=== PATIENT | female | born 1985 | race Caucasian/White ===

== ENCOUNTER 2018-12-21 15:19 | Emergency (ER) | payer MEDICAID ==
[2018-12-21 15:26] VITALS: BP 137/74
--- NOTE | 2018-12-21 15:49 | ER Document Report ---
ED Medical Screen (RME) - General Chief Complaint: Back Pain Stated Complaint: BACK PAIN Time Seen by Provider: 12/21/18 15:45 Mode of Arrival: Ambulatory Information source: Patient Notes: This 33-year-old female presents with complaints of back pain. Reports mid to low back pain. History of C2 fracture. Patient is on pain management takes oxy and several other medications for her pain. Reports not helping. Also reports she has had a change in her the way she voids. Feels like she has to change positions to void. Denies recent trauma. Denies fever vomiting diarrhea. Patient is visiting from [place]. I have greeted and performed a rapid initial assessment of this patient. A comprehensive ED assessment and evaluation of the patient, analysis of test results and completion of the medical decision making process will be conducted by additional ED providers. Dictation of this chart was performed using voice recognition software; therefore, there may be some unintended grammatical errors. - Related Data Allergies/Adverse Reactions: acetaminophen [From Lortab] Allergy (Severe, Verified 12/21/18 15:42) resp distress, rash baclofen Allergy (Severe, Verified 12/21/18 15:42) Vivid dreams hydrocodone Allergy (Severe, Verified 12/21/18 15:42) resp distress, rash ketorolac [From Toradol] Allergy (Severe, Verified 12/21/18 15:42) colitis loracarbef [From Lorabid] Allergy (Severe, Verified 12/21/18 15:42) Respiratory arrest tramadol Allergy (Severe, Verified 12/21/18 15:42) Colitis spironolactone Allergy (Intermediate, Verified 12/21/18 15:42) Respiratory distress Physical Exam - Vital signs Vitals: Temp Pulse Resp BP Pulse Ox 98.4 F 96 19 137/74 H 97 12/21/18 15:24 12/21/18 15:24 12/21/18 15:24 12/21/18 15:24 12/21/18 15:24 Course - Vital Signs Vital signs: Temp Pulse Resp BP Pulse Ox 98.4 F 96 19 137/74 H 97 12/21/18 15:24 12/21/18 15:24 12/21/18 15:24 12/21/18 15:24 12/21/18 15:24
[2018-12-21 16:19] LABS: APPEARANCE,URINE SLIGHTLY-CLOUDY; BILIRUBIN,URINE NEGATIVE (NEGATIVE); COLOR,URINE YELLOW; GLUCOSE, URINE NEGATIVE (NEGATIVE); KETONES,URINE NEGATIVE (NEGATIVE); LEUKOCYTE ESTERASE,URINE NEGATIVE (NEGATIVE); NITRITE,URINE NEGATIVE (NEGATIVE); PROTEIN,URINE NEGATIVE (NEGATIVE); URINE SPECIFIC GRAVITY 1.017; UROBILINOGEN,URINE NEGATIVE mg/dL (<2.0)
[2018-12-21] MEDS ORDERED: HYDROMORPHONE HCL INJ/PF 2 MG/ML AMPULE IM ONE (17:12)
--- NOTE | 2018-12-21 17:16 | ER Document Report ---
HPI - HPI Time Seen by Provider: 12/21/18 15:45 Pain Level: 5 Notes: Patient is a 33-year-old female with a history of chronic back pain under the care of pain management who presents complaining of acute on chronic right low back pain. Patient states her back pain does not radiate and is worse with moving and twisting. Patient states that the pain has been persistent for 1 week without resolve with her pain medicine at home. Patient states that she has been performing exercises, seeing chiropractics, and performing other conservative measures at home without relief. Patient states that [facility], but would like something to help bring it down to a manageable level so her outpatient medications will work well for her. She is able to eat and drink without difficulty. She is urinating and having normal bowel movements. No other vaginal discharge, odor, or bleeding. No history of spinal abscess, diabetes, or IV drug abuse. Denies any headache, fever, URI, sore throat, chest pain, palpitations, syncope, cough, shortness of breath, wheeze, dyspnea, abdominal pain, nausea/vomiting/diarrhea, urinary retention, dysuria, hematuria, loss of control of bowel or bladder, numbness/tingling, saddle anesthesia, muscle paralysis/weakness, or rash. - ROS Systems Reviewed and Negative: Yes All other systems reviewed and negative - REPRODUCTIVE LMP: hysterectomy Reproductive: DENIES: : Past Medical History - General Information source: Patient - Social History Smoking Status: Never Smoker Chew tobacco use (# tins/day): No Frequency of alcohol use: None Drug Abuse: None Family History: Reviewed & Not Pertinent Patient has suicidal ideation: No Patient has homicidal ideation: No Renal/ Medical History: Denies: Hx Peritoneal Dialysis Vertical Provider Document - CONSTITUTIONAL Agree With Documented VS: Yes Notes: PHYSICAL EXAMINATION: GENERAL: Well-appearing, well-nourished and in no acute distress. LUNGS: Breath sounds clear to auscultation bilaterally and equal. No wheezes rales or rhonchi. HEART: Regular rate and rhythm without murmurs, rubs, gallops. ABDOMEN: Soft, nontender, nondistended abdomen. No guarding, no rebound. No masses appreciated. Normal bowel sounds present. No CVA tenderness bilaterally. No pulsatile mass Musculoskeletal: LE's b/l: FROM to passive/active. Strength 5+/5. No deficits noted. No bony tenderness of extremities. Back: FROM to passive/active. Strength 5+/5. No vertebral point tenderness, stepoffs, or deformities. No other bony tenderness, erythema, swelling, or ecchymosis. SLR negative b/l. + tenderness to the Rt L-paraspinal mm that reproduces symptoms with trigger point and mild spasming. No SI jt tenderness. No foot drop Extremities: No cyanosis, clubbing, or edema b/l. Peripheral pulses 2+. Capillary refill less than 2 seconds. NEUROLOGICAL: Normal speech, normal gait. Normal sensory, motor exams. Reflexes 2+ b/l. PSYCH: Normal mood, normal affect. SKIN: Warm, Dry, normal turgor, no rashes or lesions noted. - INFECTION CONTROL TRAVEL OUTSIDE OF THE [place] IN LAST 30 DAYS: No Course - Re-evaluation Re-evalutation: 12/21/18 17:14 Patient is an afebrile, well-hydrated, 33-year-old female who presents to the ED with acute on chronic low back pain. Vitals are acceptable. PE is otherwise unremarkable for any focal neurological deficits. She has no significant tachycardia, tachypnea, or hypoxia. She is nontoxic-appearing and is tolerating p.o. without difficulties. There are no signs of infection. No other red flag symptoms noted. No other labs or imaging warranted at this time based on H&P. Low suspicion for any meningitis, fracture, expanding/ruptured AAA, cauda equina syndrome, epidural mass lesion/abscess, herniated disc causing severe spinal stenosis, or other systemic infection at this time. Patient is aware that this condition can change from initial presentation and that she needs monitor symptoms closely for any acute changes. Pt was given 1 dose of IM dilaudid for her acute pain, but is aware that she is not going home with any further narcotic medication and is aware that the ED is not a place for pain management. She will need to contact her medical group tomorrow. Conservative measures otherwise for symptoms. Recheck with your PCM in 3-5 days. Consider consult with orthopedic/physical therapy. Return to the ED with any worsening/concerning symptoms otherwise as reviewed discharge. Patient is in agreement. - Vital Signs Vital signs: Temp Pulse Resp BP Pulse Ox 98.4 F 96 19 137/74 H 97 12/21/18 15:24 12/21/18 15:24 12/21/18 15:24 12/21/18 15:24 12/21/18 15:24 Discharge - Discharge Clinical Impression: Acute exacerbation of chronic low back pain Condition: Stable Disposition: HOME, SELF-CARE Additional Instructions: Rest, Ice Tylenol/ibuprofen as needed Light stretches daily Strength exercises as able Moist heat and massage may help F/u with your PCP in 3-5 days for a recheck Consider consult(s) with Orthopedics/physical therapy for ongoing/worsening symptoms Return to the ED with any worsening symptoms and/or development of fever, headache, chest pain, palpitations, syncope, shortness of breath, trouble breathing, abdominal pain, n/v/d, blood in stool/urine, loss of control of bowel/bladder, urinary retention, muscle weakness/paralysis, saddle anesthesia, numbness/tingling, or other worsening symptoms that are concerning to you. Forms: Elevated Blood Pressure Referrals: [facility] [Provider Group] - Follow up as needed
== END 2018-12-21 17:30 | disposition home or self-care (01) ==
LOC: ER 15:19
DX: G89.29 Other chronic pain (principal); M54.5 Low back pain
CPT/HCPCS: 99283; 96372; 81025; 81001; J1170

== ENCOUNTER 2019-03-05 12:13 | Emergency (ER) | payer OTHER ==
[2019-03-05] MEDS ORDERED: DEXAMETHASONE SOD PHOS INJ 10 MG/1 ML VIAL IM ONE (13:50)
[2019-03-05] MEDS ORDERED: LIDOCAINE 5% (700 MG) TRANSDERMAL ADH..PATCH TP ONE (13:50)
--- NOTE | 2019-03-05 13:50 | ER Document Report ---
ED Neck/Back Problem - General Chief Complaint: Low Back Pain Stated Complaint: NECK PAIN Time Seen by Provider: 03/05/19 13:39 Primary Care Provider: [facility] [Provider [facility]] - Follow up as needed [facility] [Provider Group] - [facility] as [facility]] - Follow up as needed [facility] [Provider Group] - Follow up as needed [facility] [Provider Group] - Follow up as needed [facility] [Provider Group] - Follow up as needed Mode of Arrival: Ambulatory Information source: Patient Notes: 33-year-old female presents to ED for complaint of low back pain to the right lower back and right buttocks it does not radiate down her leg. She does have a long history of chronic back pain with multiple wounds to her back. She does have fibromyalgia, bulging disc, previous neck fracture, ulcerative colitis, arthritis. She states she is on Percocet and Flexeril. She cannot take Toradol or tramadol due to her ulcerative colitis being flared up each time she takes these. Dates she has not had any surgeries in the past. Patient is on oxycodone 15 5 times a day and Flexeril for her chronic pain TRAVEL OUTSIDE OF THE [place] IN LAST 30 DAYS: No - HPI Patient complains to provider of: Lower back Onset: Last week Onset: Chronic Timing: Waxing and waning Quality of pain: Sharp Severity: Moderate Pain Level: 3 Recent injury: No Associated symptoms: Like prior neck/back pain, Radiation to leg, Lower back pain Exacerbated by: Movement of neck, Movement of trunk Relieved by: Nothing Similar symptoms previously: Yes Recently seen / treated by doctor: No - Related Data Allergies/Adverse Reactions: acetaminophen [From Lortab] Allergy (Severe, Verified 03/05/19 14:23) resp distress, rash baclofen Allergy (Severe, Verified 03/05/19 14:23) Vivid dreams hydrocodone Allergy (Severe, Verified 03/05/19 14:23) resp distress, rash ketorolac [From Toradol] Allergy (Severe, Verified 03/05/19 14:23) colitis loracarbef [From Lorabid] Allergy (Severe, Verified 03/05/19 14:23) Respiratory arrest tramadol Allergy (Severe, Verified 03/05/19 14:23) Colitis spironolactone Allergy (Intermediate, Verified 03/05/19 14:23) Respiratory distress Home Medications: Oxycodone, Xanax, Zofran, Flexiril Past Medical History - General Information source: Patient - Social History Smoking Status: Never Smoker Frequency of alcohol use: None Drug Abuse: None Lives with: Family Family History: Reviewed & Not Pertinent Patient has suicidal ideation: No Patient has homicidal ideation: No - Past Medical History Cardiac Medical History: Reports: None Pulmonary Medical History: Reports: None EENT Medical History: Reports: None Neurological Medical History: Reports: None Endocrine Medical History: Reports: None Renal/ Medical History: Reports: None Malignancy Medical History: Reports: None GI Medical History: Reports: Hx Gastroesophageal Reflux Disease, Hx Ulcer, Hx Ulcerative Colitis, Hx Colonoscopy, Hx Endoscopy Musculoskeletal Medical History: Reports Hx Arthritis, Reports Hx Fibromyalgia, Reports Hx Musculoskeletal Deformity, Reports Hx Musculoskeletal Trauma Skin Medical History: Reports None Psychiatric Medical History: Reports: Hx Anxiety, Other - panic Traumatic Medical History: Reports: Hx Spine Fracture - c2 Infectious Medical History: Reports: None Past Surgical History: Reports: Hx Hysterectomy Review of Systems - Review of Systems Constitutional: No symptoms reported EENT: No symptoms reported Cardiovascular: No symptoms reported Respiratory: No symptoms reported Gastrointestinal: No symptoms reported Genitourinary: No symptoms reported Female Genitourinary: No symptoms reported Musculoskeletal: Back pain, Muscle pain, Muscle stiffness Skin: No symptoms reported Hematologic/Lymphatic: No symptoms reported Neurological/Psychological: No symptoms reported -: Yes All other systems reviewed and negative Physical Exam - Vital signs Vitals: Temp Pulse Resp BP Pulse Ox 97.9 F 119 H 18 141/72 H 98 03/05/19 13:02 03/05/19 13:02 03/05/19 13:02 03/05/19 13:02 03/05/19 13:02 Interpretation: Normal - General General appearance: Appears well, Alert - HEENT Head: Normocephalic, Atraumatic Eyes: Normal Pupils: PERRL - Respiratory Respiratory status: No respiratory distress Chest status: Nontender Breath sounds: Normal Chest palpation: Normal - Cardiovascular Rhythm: Regular Heart sounds: Normal auscultation Murmur: No - Abdominal Inspection: Normal Distension: No distension Bowel sounds: Normal Tenderness: Nontender Organomegaly: No organomegaly - Back Back: Normal, Tender. No: Deformity/step-off, CVA tenderness, Vertebra tenderness, Scars, Scoliosis, Wounds - Extremities General upper extremity: Normal inspection, Nontender, Normal color, Normal ROM, Normal temperature General lower extremity: Normal inspection, Nontender, Normal color, Normal ROM, Normal temperature, Normal weight bearing. No: Daryl's sign - Neurological Neuro grossly intact: Yes Cognition: Normal Orientation: AAOx4 [place] Coma Scale Eye Opening: Spontaneous [place] Coma Scale Verbal: Oriented [place] Coma Scale Motor: Obeys Commands Ze Coma Scale Total: 15 Speech: Normal Motor strength normal: LUE, RUE, LLE, RLE Sensory: Normal - Psychological Associated symptoms: Normal affect, Normal mood - Skin Skin Temperature: Warm Skin Moisture: Dry Skin Color: Normal Course - Re-evaluation Re-evalutation: 03/05/19 14:03 After performing a Medical Screening Examination, I estimate there is LOW risk for EXPANDING OR RUPTURED ABDOMINAL AORTIC ANEURYSM, CAUDA EQUINA SYNDROME, EPIDURAL MASS LESION, or HERNIATED DISK CAUSING SEVERE SPINAL STENOSIS, thus I consider the discharge disposition reasonable. I have reevaluated this patient multiple times and no significant life threatening changes are noted. The patient and I have discussed the diagnosis and risks, and we agree with discharging home and close follow-up. We also discussed returning to the Emergency Department immediately if new or worsening symptoms occur with the understanding that symptoms and presentations can change. We have discussed the symptoms which are most concerning (e.g., saddle anesthesia, urinary or bowel incontinence or retention, changing or worsening pain) that necessitate immediate return. - Vital Signs Vital signs: Temp Pulse Resp BP Pulse Ox 98.2 F 99 18 128/82 H 99 03/05/19 14:29 03/05/19 14:29 03/05/19 14:29 03/05/19 14:29 03/05/19 14:29 - Diagnostic Test Radiology reviewed: Image reviewed, Reports reviewed Discharge - Discharge Clinical Impression: Exacerbation of chronic back pain Condition: Stable Disposition: HOME, SELF-CARE Additional Instructions: Chronic Pain Control Stress, inactivity, and depression make pain more severe regardless of the cause of the pain. Stress and poor physical condition can cause pain such as headaches and backache. Relaxation: Rest in a quiet place with your eyes closed for 20 minutes twice daily. Concentrate on a pleasant image, or simply "feel" your breathing. Clear your mind. Stress management: Deal with your "stressors." Either take action, or eliminate the stressor from your life. Don't let things hang over you. Accept those things you can't change. Nutrition: Eat small, balanced meals -- don't skip, don't overeat. Meals should be high-carbohydrate, low-sugar, low-fat. Exercise: Exercise helps painful conditions and eases stress. Get 30 minutes of moderate exercise, five days a week. Do an activity that does not flare your pain. Precautions: Pain which continues to disrupt daily activities, or which changes in nature, requires a medical evaluation. Pain Clinic referral is available. We do not manage chronic pain in the Emergency Department. 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 We do not provide repeated medication management of chronic painful conditions. If you wish, we can provide the name of local pain management physicians. ICE PACKS: Apply ice packs frequently against the painful area. Many different schedules are recommended, such as "20 minutes on, 20 minutes off" or "one hour ice, two hours rest." If you need to work, you may need to go longer between ice treatments. You should plan to have the area ice packed AT LEAST one fourth of the time. The ice should be applied over the wrap, tape, or splint, or over a layer of cloth -- not directly against the skin. Some ice bags have a built-in cloth and can be put directly on the skin. WARM PACKS: After approximately two days, apply gentle heat (such as a heating pad or hot water bottle) for about 20 to 30 minutes about every two hours -- at least four times daily. Warmth and elevation will help you make a more rapid recovery, and will ease the pain considerably. Do not use HOT heat, and never apply heat for longer than 30 minutes. The continuous heat can invisibly damage skin and muscles -- even when no burn is seen on the surface. Damaged muscles can make you MORE sore. FOLLOW-UP CARE: If you have been referred to a physician for follow-up care, call the physicians office for an appointment as you were instructed or within the next two days. If you experience worsening or a significant change in your symptoms, notify the physician immediately or return to the Emergency Department at any time for re-evaluation. Prescriptions: Lidocaine [Lidoderm 5% (700 mg) Transdermal Patch] 1 patch TP DAILY #30 adh..patch Forms: Elevated Blood Pressure [facility]: [facility] [Provider Group] - Follow up as needed [facility] [Provider Group] - Follow up as needed [facility] [Provider Group] - Follow up as needed [facility] [Provider Group] - Follow up as needed [facility] [Provider Group] - Follow up as needed [facility] [Provider Group] - Follow up as needed
[2019-03-05 14:30] VITALS: BP 128/82
== END 2019-03-05 14:30 | disposition home or self-care (01) ==
LOC: ER 12:13
DX: G89.29 Other chronic pain (principal); M54.5 Low back pain; M79.7 Fibromyalgia; Z79.891 Long term (current) use of opiate analgesic; Z79.899 Other long term (current) drug therapy; Z88.8 Allergy status to other drugs, medicaments and biological substances; Z88.6 Allergy status to analgesic agent; Z88.5 Allergy status to narcotic agent; Z87.81 Personal history of (healed) traumatic fracture
CPT/HCPCS: 99283; 96372; J1100